=== PATIENT | female | born 1965 | race Two or more races ===

== ENCOUNTER 2024-02-20 09:34 | Emergency (ER) | payer MEDICAID, SELFPAY ==
[2024-02-20 09:35] VITALS: BMI 26.2
[2024-02-20 09:37] VITALS: BP 122/83; PULSE 88; RESP 16; TEMP 36.8; O2SAT 99
--- NOTE | 2024-02-20 10:43 | XR_ITS ---
Examination: Knee, left , 3 views Technique: Knee AP, lateral, oblique 3 views Date and time of exam: February 20, 2024 1050 hrs. Indications: Patient fell today with injury to the knee, knee pain. Findings: Acute fractures proximal tibia laterally with comminution There is depression of the lateral tibial plateau at least 12 mm Blood in the joint space Significant osteopenia Impression: Acute fractures proximal tibia laterally with depression of the lateral tibial plateau
--- NOTE | 2024-02-20 10:43 | XR_ITS ---
Examination: Tibia-Fibula, left , 2 views Technique: Tibia-fibula AP lateral 2 views Date and time of exam: February 20, 2024 at 1054 hrs. Indications: Patient fell today with injury to the lower leg, left lower leg pain. Findings: Acute comminuted fractures proximal lateral tibia with prominent depression of the lateral tibial plateau Fibula appears intact Impression: Acute comminuted fractures proximal lateral tibia with prominent depression of the lateral tibial plateau
--- NOTE | 2024-02-20 10:44 | EDNOTE_ITS ---
Lower Extremity Injury RME/HPI General Chief Complaint: Extremity Injury, Lower Stated Complaint: L LEG PAIN S/P FALL Time Seen by Provider: 02/20/24 10:18 Arrival date/time: 02/20/24 09:34 This is a 58-year-old female that was feeding her dogs and accidentally slipped and fell. Patient states that she injured her left knee and left mccall area. Patient denies any other trauma. Patient just has a history of osteoporosis. Related Data Home Medications ?Medication ?Instructions ?Recorded ?Confirmed calcium carbonate (Calcium 600) 600 mg PO BID 02/25/24 02/25/24 Previous Rx's ?Medication ?Instructions ?Recorded hydrocodone 5 mg-acetaminophen 325 1 tab PO Q4H PRN pain #14 tabs 02/20/24 mg tablet Allergies Allergy/AdvReac Type Severity Reaction Status Date / Time No Known Allergies Allergy Verified 02/25/24 12:59 Review of Systems Review of Systems Systems Reviewed: All systems reviewed, normal except as documented Past Medical History Social History SMOKING STATUS: Never smoker ED Exam General General appearance: Present alert and in no apparent distress Head Head exam: Present atraumatic Eye Eye exam: Present normal appearance, PERRL and EOMI ENT ENT exam: Present normal exam, normal oropharynx and mucous membranes moist Neck Neck exam: Present normal inspection, full ROM and trachea midline Chest Chest inspection: Present normal inspection and symmetric chest wall rise Respiratory Respiratory exam: Present normal lung sounds bilaterally Cardiovascular Cardiovascular exam: Present regular rate, normal rhythm and normal heart sounds Abdominal Exam Abdominal exam: Present soft Extremities Exam Extremities exam: Present other (pain with rom of left knee area and a little bit below, mild swelling ) Back Exam Back exam: Present normal inspection and full ROM Neurological Exam Neurological exam: Present alert, oriented X3 and CN II-XII intact Psychiatric Psychiatric exam: Present normal affect and normal mood Skin Skin exam: Present warm, dry, intact and normal color Course Quality Measures none Orders Category Date Time Status Crutches .NOW Care 02/20/24 13:09 Completed XR knee LT 3V Stat Exams 02/20/24 10:43 Completed XR tibia fibula LT 2V Stat Exams 02/20/24 10:43 Completed Acetaminophen Tab [Tylenol ES Tab] Med 02/20/24 10:43 Discontinued 1,000 mg PO X1 ONE HYDROcodone*/APAP 5/325 [[place] 5/325] Med 02/20/24 13:09 Discontinued 1 tab PO X1 ONE Ibuprofen Tab [Motrin Tab] Med 02/20/24 10:43 Discontinued 800 mg PO X1 ONE Morphine Inj Med 02/20/24 12:26 Discontinued 4 mg IM X1 ONE Ondansetron Odt [Zofran Odt] Med 02/20/24 12:26 Discontinued 4 mg PO X1 ONE Vital Signs Vital signs: Vital Signs Temperature 98.3 F 02/20/24 09:37 Pulse Rate 88 02/20/24 09:37 Respiratory Rate 16 02/20/24 09:37 Blood Pressure 122/83 02/20/24 09:37 Pulse Oximetry (%) 99 02/20/24 09:37 Oxygen Delivery Method Room Air 02/20/24 09:37 Extremity Injury, Lower MDM Narrative MDM Narrative:: left KNee x ray: Acute fractures proximal tibia laterally with depression of the lateral tibial plateau Left tib/fib: Acute comminuted fractures proximal lateral tibia with prominent depression of the lateral tibial plateau Spoke to . He stated to put patient in either knee immobilizer or a posterior splint. Will send patient home on crutches. Patient will need to be seen in his office at 230 tomorrow. I explained this to patient at length. He states patient will likely need surgery. Patient data External records reviewed:: [facility] previous records Clinical information provided by:: patient Social determinants that could affect healthcare access:: none Patient has the following chronic illnesses:: see hpi How is presenting disease/condition affected by chronic disease/condition?: exacerbated by Evaluation data The following diagnostics were reviewed and interpreted by me:: radiology exam(s) Lab and/or radiology exams considered but not ordered:: none Interpretation Summary: see note Medications / Prescriptions Medications or Prescriptions considered but not ordered:: none Medication administrations:: Medication Administration History Discontinued Medications Acetaminophen (Acetaminophen 500 Mg Tablet) 1,000 mg PO X1 ONE Stop: 02/20/24 10:44 Last Admin: 02/20/24 11:02 Dose: 1,000 mg Documented By: OA Hydrocodone Bitart/Acetaminophen (Hydrocodone/Apap 5/325 Tablet) 1 tab PO X1 ONE Stop: 02/20/24 13:10 Ibuprofen (Ibuprofen Tab 400 Mg Tablet) 800 mg PO X1 ONE Stop: 02/20/24 10:44 Last Admin: 02/20/24 11:03 Dose: 800 mg Documented By: OA Morphine Sulfate (Morphine Sulf Inj 10 Mg/Ml Vial) 4 mg IM X1 ONE Stop: 02/20/24 12:27 Last Admin: 02/20/24 12:44 Dose: 4 mg Documented By: OA Ondansetron HCl (Ondansetron Odt 4 Mg Tabrap) 4 mg PO X1 ONE; Protocol Stop: 02/20/24 12:27 Last Admin: 02/20/24 12:44 Dose: 4 mg Documented By: OA see mar Consultations Consultation(s) initiated? (list below): No Diagnosis Most likely diagnosis given after review of the tests above:: Acute comminuted fractures proximal lateral tibia with prominent depression of the lateral tibial plateau Admission Indicated Admission indicated?: not indicated Admission Request Was there a request for admission?: No Disposition Plan Disposition Plan: Discharge Discharge Attestation Discharge Attestation: The patient and all family members were given an opportunity to ask questions and understood the discharge instructions. Discharge instructions specifically effects, indications for sooner follow up or return to the emergency department, and the expected course of current diagnosis. Patient condition: Stable Discharge Plan Plan Patient Disposition: HOME (Self Care) Patient condition on transfer: Stable Prescriptions/Referrals Prescriptions/Med Rec: New hydrocodone-acetaminophen 5-325 mg tablet 1 tab PO Q4H MDD 4 PRN (Reason: pain) Qty: 14 0RF No Action calcium carbonate [Calcium 600] 600 mg calcium (1,500 mg) Tablet 600 mg PO BID Referrals: Nithya Bailey FNP-C [Primary Care Provider] - In 1 week Problem List Clinical Impression: Fracture tibia/fibula Patient/Caregiver Discharge Instructions Discharge Activity: activity as tolerated Education Materials: ED Fracture, Lower Extremity Additional Instructions: Patient must follow-up with [facility] [id number]. [phone]. Patient must be seen at 230 tomorrow because it is likely that she will need surgery. Come back to the emergency room if symptoms change or worsen. Use crutches when walking keep knee immobilizer on. Keep scheduled appointment Print Language: Citizen Of [place] Stand Alone Forms: [employer] Award Info., Patient Portal Info Letter LYN/LUIS Supervising Physician YOUSUF Supervising Physician: reva
[2024-02-20] MEDS: ACETAMINOPHEN 500 MG TABLET 1000 MG PO (11:02)
[2024-02-20] MEDS: IBUPROFEN TAB 400 MG TABLET 800 MG PO (11:03)
[2024-02-20] MEDS: ONDANSETRON ODT 4 MG TABRAP PO (12:44)
[2024-02-20] MEDS: MORPHINE SULF INJ 10 MG/ML VIAL 4 MG IM (12:44)
== END 2024-02-20 13:37 | disposition home or self-care (01) ==
PROVIDERS: Emergency Provider Emergency Medicine; PCP Nurse Practitioner Family
DX: S82.252A Displaced comminuted fracture of shaft of left tibia, initial encounter for closed fracture (principal); S82.142A Displaced bicondylar fracture of left tibia, initial encounter for closed fracture; W01.0XXA Fall on same level from slipping, tripping and stumbling without subsequent striking against object, initial encounter
CPT/HCPCS: 73562; 73590; 96372; 99284; J2270; Q0162; A9270

== ENCOUNTER 2024-02-28 08:55 | Day surgery (SDC) | payer MEDICAID, SELFPAY ==
--- NOTE | 2024-02-25 12:01 | EKG_ITS ---
[facility] Test Date: 2024-02-25 Pat Name: RAHUL LEVIN Department: Room: - Gender: Female [employer] Consultant: GERALD : 1965 Requested By: Dany North Order Number: [id number] Reading MD: Dany North Measurements Intervals [place] Rate: 92 P: 56 WV: 170 QRS: -24 QRSD: 97 T: 65 QT: 373 QTc: 463 Interpretive Statements SINUS RHYTHM BORDERLINE LEFT AXIS DEVIATION No previous ECG available for comparison /store/S0/[id number]/[id number].pdf
[2024-02-25 13:01] VITALS: BMI 24.2
[2024-02-25 15:16] LABS: Anion Gap 6 (7-16); BUN/Creatinine Ratio 16 Ratio (12-20); Blood Urea Nitrogen 11 mg/dL (9-23); Calcium 9.6 mg/dL (8.3-10.6); Carbon Dioxide 26.6 mMol/L (20.0-31.0); Chloride 106 mMol/L (98-107); Creatinine (Component) 0.7 mg/dL (0.6-1.3); Estimated Creatinine Clearance 69.7 mL/min (>60); Glucose 85 mg/dL (74-106); Osmolality,Calculated 275 (275-295); Potassium 3.7 mMol/L (3.4-5.1); Sodium 139 mMol/L (136-145); eGFR > 60 See Note
[2024-02-25 15:26] LABS: Basophils % (Auto) 0 % (0-2.5); Eosinophils # (Auto) 0.2 Thou/mm3 (0.0-0.5); Eosinophils % (Auto) 2 % (0-10); Hematocrit 40.7 % (36.0-46.0); Hemoglobin 13.3 g/dL (12.0-16.0); Immature Granulocytes % (Auto) 0 % (0-0); Immature Granulocytes Auto 0.02 Thou/mm3 (0.00-0.00); Lymphocytes # (Auto) 3.2 Thou/mm3 (1.0-4.8); Lymphocytes % (Auto) 30 % (10-50); Mean Corpuscular HGB Conc 32.7 g/dl (31.0-37.0); Mean Corpuscular Hemoglobin 29.9 pg (25.0-35.0); Mean Corpuscular Volume 92 fL (80-100); Monocytes # (Auto) 0.6 Thou/mm3 (0.0-0.8); Monocytes % (Auto) 5 % (0-12); Neutrophils # (Auto) 6.7 Thou/mm3 (1.8-7.7); Neutrophils % (Auto) 62 % (37-80); Nucleated Red Blood Cell % 0 /100 WBC (0); Platelet Count 331 Thou/mm3 (140-440); RDW Standard Deviation 48.6 fL (36.4-46.3); Red Blood Count 4.45 Miln/mm3 (4.00-5.20); White Blood Count 10.7 Thou/mm3 (3.6-11.0)
[2024-02-25 15:33] LABS: Partial Thromboplastin Time 28.3 Seconds (22.0-36.0); Prothrombin Time 10.9 Seconds (9.0-12.2)
[2024-02-28] VITALS (14 sets, daily range): BP systolic 112–181; BP diastolic 79–120; PULSE 76–106; RESP 12–20; TEMP 36.6–37.1; O2SAT 95–100; BMI 24.2
[2024-02-28] MEDS: RINGERS LACTATED 1000 ML 1,000 ML 20 ML IV (09:43)
--- NOTE | 2024-02-28 12:34 | XR_ITS ---
Examination: Left knee AP lateral 3 spot fluoroscopic views Fluoroscopy Exam date and time: February 28, 2024 1447 hours INDICATIONS: Acute fracture proximal tibia with depression lateral tibial plateau February 20, 2024, operative reduction internal fixation fracture today FINDINGS: Operative reduction internal fixation fracture proximal tibia with satisfactory alignment Satisfactory position orthopedic hardware Fluoroscopy 92 seconds 3 spot fluoroscopic films radiation dose 4.74 milligray Impression: Operative reduction internal fixation fracture proximal tibia with satisfactory alignment
--- NOTE | 2024-02-28 14:22 | SUR.PHASEI ---
1422 Patient arrived to recovery resting comfortably in [facility], on oxygen 8L via oxy mask with an oral airway in place, breathing unlabored, vital signs stable, dressing intact to left leg; guille, adaptic soaked in betadine, fluffs, abd, bias roll, knee immoblizer, no bleeding noted, lung sounds clear upon auscultation, bilateral dorsalis pedis pulses present when palpated, patient has good circulation to left lower extremity; skin color normal for patient and warm to touch, report received from Manoj COPE and Dr. Wu
[2024-02-28] MEDS: hydrALAZINE INJ 20 MG/ML VIAL 10 MG IV (14:53)
[2024-02-28] MEDS: MORPHINE SULF INJ 10 MG/ML VIAL 3 MG IV (14:58)
[2024-02-28] MEDS: ACETAMINOPHEN IVPB 1,000 MG/100 ML VIAL 250 MG IV (15:00)
--- NOTE | 2024-02-28 15:08 | SUR.PHASEII ---
2397 Daughter called recover stating she would be leaving [place] soon to grain picker her mother
--- NOTE | 2024-02-28 15:11 | XR_ITS ---
Examination: Knee, left , 3 views Technique: Knee AP, lateral, oblique 3 views Date and time of exam: February 28, 2024 1515 hours INDICATIONS: Status post operative reduction internal fixation fracture proximal tibia through the lateral tibial plateau region FINDINGS: Reduction internal fixation fracture proximal tibia through the lateral tibial plateau region Stable and satisfactory alignment Orthopedic hardware satisfactory position IMPRESSION: Operative reduction internal fixation fracture proximal tibia through the lateral tibial plateau region with satisfactory alignment
[2024-02-28] MEDS: HYDROmorphone INJ 2 MG/ML VIAL 0.4 MG IVP ×2 (15:15→15:37)
--- NOTE | 2024-02-28 15:27 | SUR.PHASEII ---
1527 XRAY complete per MD order
--- NOTE | 2024-02-28 15:55 | SUR.PHASEII ---
1555 called patient daughter to get update when she would arrive, daughter stated she was still in [place] at work and would be here closer to 5pm
--- NOTE | 2024-02-28 16:42 | SUR.PHASEII ---
1646 Patient meets discharge criteria from recovery, awake and alert, breathing unlabored, vital signs stable, denies pain, dressing intact; no bleeding noted with knee immbolizer, patient ate a jello and drinking apple juice; tolerated well, denies nausea, patient assisted with dressing into her clothing by this scientific writer, discharge instructions given to patient and patients grandson, patient declined to use reading efficiency course director as she states she understands Sinhala well, grandson signed discharge instructions. Patient given all her belongings prior to discharge, transported via wheelchair and left in a private vehicle.
--- NOTE | 2024-02-29 13:10 | PD.SUROPNT ---
Date of Procedure 02/28/24 Pre Op Diagnosis Depressed left lateral tibial plateau fracture Post Op Diagnosis Same Procedure Open reduction internal fixation with lateral tibial plateau plate with bone graft. Synthes implant. Findings Refer dictation Procedure Description Patient was given general endotracheal anesthesia. Once satisfactory anesthesia achieved a tourniquet was placed on left upper thigh. Following that part was thoroughly prepped and draped. After using Esmarch the tourniquet pressure was raised to 350 mmHg Intravenous antibiotics was given at the time of anesthesia A skin incision was made from the lateral aspect of the tibial tuberosity extending distally for about 4 to 5 inches along the tibial crest. It was extended proximally in a Carine fashion along that lateral tibial crest up to the mid joint 11. The skin was reflected. Following that the anterior lateral muscle group was reflected with the help of a periosteal elevator. The fracture was exposed Position was checked under C-arm A window was made over the lateral aspect of the tibia bone. With the help of bone punch the depressed part was elevated. Was satisfactory elevation was achieved and cancellous bone graft was placed in the hole. Following that a 3 hole lateral tibial plate and 5 4 vertical plate was mounted over the lateral aspect. Once satisfactory placement was achieved and 2 guidepin was passed through the proximal end. Following that a grill on the vertical limb was used to make a hole and a cortical screw was placed and it was tightened to socket was the bone Following that in the middle hole on the upper and the drilling was done and appropriate size cortical screw was placed. Position was checked under C-arm and found to be good Following that the anterior and posterior holes were also drilled and appropriate size interlocking screw was placed. Distally tomorrow holes were drilled out of which 1 was interlocking screw and the other 1 was cortical screws Wound was irrigated with antibiotic solution with 4 to 5 minutes closure was done in layers with the help of 2-0 Vicryl for soft tissue and the skin was closed with guille About 20 mL of quarter percent Marcaine was injected To cleaning the wound with hydrogen peroxide solution a sterile dressing was applied and tourniquet pressure was released Knee immobilizer was placed Patient was taken to recovery room in good condition. Further management. Patient will be nonweightbearing at least for 6 to 8 weeks and will be followed in my office. Is serial x-ray will be obtained to monitor the healing process. Anesthesia GETA Pathology / specimen None Estimated Blood Loss 20 Surgeon Dany Campos MD Surgical Staff Operation Date: 02/28/24 11:45 Case Staff Anesthesiologist: Marco A uW RN First Assistant: Makayla Real
--- NOTE | 2024-02-29 16:04 | ESHP_ITS ---
RE: RAHUL MARRERO : 1965 DATE OF ADMISSION: 02/28/2024 The patient came to my office on 02/20/2024 for detailed preop history and physical examination. HISTORY OF PRESENT ILLNESS: As per history available, the patient fell at home on 02/19, injured her left knee. X-ray was obtained, which revealed depressed fracture of the left tibial plateau. The patient obviously needs surgical fixation with plate and screws and possible bone grafting. PAST MEDICAL HISTORY: No history of diabetes mellitus, high blood pressure, asthma, seizure, chest pain, myocardial infarction, bleeding disorder. PAST SURGICAL HISTORY: Nil. DRUG HISTORY: The patient is on hydrocodone, calcium tablet. ALLERGIES: NIL KNOWN. 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 PHYSICAL EXAMINATION: GENERAL: Normal built lady. VITAL SIGNS: Pulse 88 per minute. Blood pressure is 128/76. NECK: Soft, supple. No masses felt. Trachea is centrally replaced. CARDIOVASCULAR: First and second heart sounds are normal. No murmur heard. RESPIRATORY: Bilateral vesicular breath sounds. CHEST: Clear. ABDOMEN: Soft, no masses felt. Bowel sounds present. BREASTS: Breast examination not indicated in this case. The patient is advised to see the family physician for regular examination. EXTREMITIES: Left knee examination revealed 1+ effusion. There is 2+ tenderness along the lateral joint line. Active range of motion is from 5 degrees to 60 degrees of flexion. Ecchymosis and bruises present. Dorsal respiratory artery and posterior tibial artery is palpable. DIAGNOSTIC DATA: X-ray confirmed depressed tibial plateau fracture. ASSESSMENT AND PLAN: Diagnosis and prognosis was explained to the patient in detail. Risks with anesthesia were explained and that includes, but not limited to reaction to anesthetic agents, cardiac arrest or it might be fatal. Risks with operation includes infection, and if that happens, the patient may need further surgical pressure. Other risks include delayed healing, wound dehiscence etc. With these kind of fracture, the patient usually end up with significant osteoarthritic changes and in that case the patient may be a candidate for knee replacement later on and the patient is fully aware of that. Accordingly, surgery is booked for 02/28/2024 in [facility]. DT: 13:09:50 TT: 16:04:00 Ref: [id number] - TID: [id number]
== END 2024-02-28 16:42 | disposition home or self-care (01) ==
PROVIDERS: PCP Family Medicine; Referring Provider Orthopaedic Surgery; Visit Provider Orthopaedic Surgery
PROC: (CPT 27535; principal; 2024-02-28 11:30)
DX: S82.122A Displaced fracture of lateral condyle of left tibia, initial encounter for closed fracture (principal); Z01.810 Encounter for preprocedural cardiovascular examination
CPT/HCPCS: 27535; 36415; 73562; 76000; 80048; 85025; 85610; 85730; 93005; A4217; A4649; C1713; C1768; J0131; J0360; J0690; J1100; J1580; J1885; J2250; J2270; J2371; J2405; J2704; J3010; J3490; J7120; J0665

== ENCOUNTER → 2024-04-05 | Outpatient (CLI) | payer MEDICAID, SELFPAY ==
--- NOTE | 2024-04-05 09:59 | XR_ITS ---
Examination: Knee, left , 3 views Technique: Knee AP, lateral, oblique 3 views Date and time of exam: April 05, 2024 1118 hours INDICATIONS: Left knee surgery February 29, 2024, fracture proximal tibia FINDINGS: Significant partial healing fracture proximal tibia with stable alignment compared with February 28, 2024 Orthopedic hardware satisfactory position IMPRESSION: Significant partial healing fracture proximal tibia with stable alignment
== END | disposition home or self-care (01) ==
LOC: CDIM 09:52
PROVIDERS: Referring Provider Orthopaedic Surgery; Visit Provider Orthopaedic Surgery
DX: S82.202A Unspecified fracture of shaft of left tibia, initial encounter for closed fracture (principal); X58.XXXA Exposure to other specified factors, initial encounter; Z98.890 Other specified postprocedural states
CPT/HCPCS: 73562

== ENCOUNTER → 2024-04-27 | Outpatient (CLI) | payer MEDICAID, SELFPAY ==
--- NOTE | 2024-04-27 13:07 | XR_ITS ---
Examination: Knee, left , 3 views Technique: Knee AP, lateral, oblique 3 views Date and time of exam: April 27, 2024 1312 hrs. Comparison April 05, 2024 Indications: Left knee surgery February 29, 2024 fracture proximal tibia Findings: Stable alignment fractures proximal tibia with partial healing Orthopedic hardware satisfactory position Impression: Stable alignment with partial healing fractures proximal tibia
== END | disposition home or self-care (01) ==
LOC: CDIM 12:16
PROVIDERS: Referring Provider Orthopaedic Surgery; Visit Provider Orthopaedic Surgery
DX: S82.202A Unspecified fracture of shaft of left tibia, initial encounter for closed fracture (principal); X58.XXXA Exposure to other specified factors, initial encounter; Z87.81 Personal history of (healed) traumatic fracture; Z98.890 Other specified postprocedural states
CPT/HCPCS: 73562

== ENCOUNTER → 2024-05-25 | Outpatient (CLI) | payer MEDICAID, SELFPAY ==
--- NOTE | 2024-05-25 10:40 | XR_ITS ---
Examination: Knee, left , 3 views Technique: Knee AP, lateral, oblique 3 views Date and time of exam: May 25, 2024 1107 hours Comparison April 27, 2024 INDICATIONS: Status post operative reduction internal fixation fracture lateral tibial plateau January 2024 FINDINGS: Partial healing fractures lateral tibial plateau with stable alignment Orthopedic hardware satisfactory position IMPRESSION: Partial healing fractures lateral tibial plateau with stable alignment
== END | disposition home or self-care (01) ==
LOC: CDIM 10:12
PROVIDERS: Referring Provider Orthopaedic Surgery; Visit Provider Orthopaedic Surgery
DX: S82.142A Displaced bicondylar fracture of left tibia, initial encounter for closed fracture (principal); X58.XXXA Exposure to other specified factors, initial encounter; Z98.890 Other specified postprocedural states
CPT/HCPCS: 73562

== ENCOUNTER → 2024-12-04 | Outpatient (CLI) | payer MEDICAID, SELFPAY ==
--- NOTE | 2024-12-04 | XR_ITS ---
Examination:Left hip AP, lateral, AP pelvis 3 views Technique: Hip AP lateral, AP pelvis, 3 views Exam date and time:December 04 thousand 25, 1150 hours INDICATIONS: Patient fell one year ago with injury to left hip, left hip pain. FINDINGS: Severe osteopenia. No left hip fracture or dislocation Right hip bones of the pelvis intact IMPRESSION: No acute hip or pelvic fracture.
--- NOTE | 2024-12-04 | XR_ITS ---
Examination: Knee, left , 3 views Technique: Knee AP, lateral, oblique 3 views Date and time of exam: December 04 thousand 25, 1210 hours INDICATIONS: Patient fell one year ago with the fracture postop reduction internal fixation January 2024. FINDINGS: Healed fracture proximal tibia lateral tibial plateau Orthopedic hardware satisfactory position IMPRESSION: Healed fracture lateral tibial plateau Alignment is stable compared with May 25, 2024
== END | disposition home or self-care (01) ==
PROVIDERS: PCP Family Medicine; Referring Provider Orthopaedic Surgery; Visit Provider Orthopaedic Surgery
DX: M25.562 Pain in left knee (principal); R10.32 Left lower quadrant pain; S79.912S Unspecified injury of left hip, sequela; S89.92XS Unspecified injury of left lower leg, sequela; W19.XXXS Unspecified fall, sequela
CPT/HCPCS: 73502; 73562